=== PATIENT | male | born 1990 | race Two or more races ===

== ENCOUNTER 2018-03-13 01:00 | Emergency (ER) | payer OTHER ==
[~2018-03-13] VITALS: Ht 180.3 cm; Wt 104.3 kg
[~2018-03-13 01:00] MED LIST: DEPAKOTE ER250 MG ORAL; HALOPERIDOL0.5 MG ORAL
[2018-03-13 01:15] VITALS: BP 119/72
[2018-03-13] MEDS ORDERED: IBUPROFEN600 MG ORAL (02:25)
--- NOTE | 2018-03-13 02:40 | Emergency Room Report ---
History of Present Illness General Chief Complaint: Pain Source: Patient Present Illness HPI 27-year-old male presents ED for evaluation. Brought in by EMS complaining of right foot and ankle pain. States that he's been walking excessively and has been having pain in his right foot for weeks. Pain is dull, 8 out of 10, nonradiating. Cannot recall injuring the foot. Denies any other injuries. No other aggravating relieving factors. Denies any other associated symptoms Allergies: Coded Allergies: No Known Allergies (Unverified , 03/13/18) Patient History Past Medical History: psych hx Past Surgical History: none Pertinent Family History: none Social History: Denies: smoking, alcohol use, drug use Immunizations: UTD Reviewed Nursing Documentation: PMH: Agreed; PSxH: Agreed Nursing Documentation-PMH Past Medical History: No History, Except For History Of Psychiatric Problem: Yes Review of Systems All Other Systems: negative except mentioned in HPI Physical Exam Vital Signs Date Time Temp Pulse Resp B/P (MAP) Pulse Ox O2 Delivery O2 Flow Rate FiO2 03/13/18 00:53 18 03/13/18 00:53 98.0 75 95/58 99 Room Air 98.1 Sp02 EP Interpretation: reviewed, normal General Appearance: no apparent distress, alert, GCS 15, non-toxic Head: normocephalic Eyes: bilateral eye normal inspection, bilateral eye PERRL ENT: normal ENT inspection Neck: normal inspection Respiratory: normal inspection Cardiovascular #1: normal inspection Gastrointestinal: normal inspection Rectal: deferred Genitourinary: no CVA tenderness Musculoskeletal: swelling - R ankle Neurologic: alert, oriented x3, responsive, motor strength/tone normal, sensory intact, speech normal Psychiatric: normal inspection Skin: normal inspection Lymphatic: normal inspection Procedures Splinting Splinting : Consent: Verbal Pre-Made Type: ELIOT wrap Pre-Proc Neuro Vasc Exam: normal Post-Proc Neuro Vasc Exam: normal Patient Tolerated: Well Complications: None Medical Decision Making Diagnostic Impression: Primary Impression: Ankle pain Qualified Codes: M25.571 - Pain in right ankle and joints of right foot ER Course Hospital Course 27-year-old M presents to ED complaining of R ankle pain/swelling Differential diagnoses include: Fracture, dislocation, sprain, contusion Clinical course Patient placed on stretcher. After initial history and physical, I ordered pain medications and Xrays of R ankle Xrays prelim read shows no acute fracture/dislocation. noted soft tissue swelling. no signs of infection placed in eliot wrap. safe for discharge with close outpatient followup Diagnosis - ankle pain Stable and discharged to home with prescription for Motrin. apply ice, keep elevated. weight bear as tolerated. Followup with PMD. Return to ED if symptoms recur or worsen Other X-Ray Diagnostic Results Other X-Ray Diagnostic Results : X-Ray ordered: R ankle # of Views/Limited Vs Complete: 3 View Indication: Pain EP Interpretation: Yes Interpretation: no dislocation, no fractures, other - + soft tissue swelling Impression: No acute disease Electronically Signed by: Electronically signed by Fran Borja MD Last Vital Signs Date Time Temp Pulse Resp B/P (MAP) Pulse Ox O2 Delivery O2 Flow Rate FiO2 03/13/18 02:09 98.0 03/13/18 00:56 75 16 85/68 99 Room Air Status: improved Disposition: HOME, SELF-CARE Condition: Stable Scripts Ibuprofen* (MOTRIN*) 600 Mg Tablet 600 MG ORAL Q8H PRN for For Pain, #30 TAB 0 Refills Prov: Fran Borja MD 03/13/18 Patient Instructions: Ankle Pain Fran Borja MD Mar 13, 2018 02:40
[2018-03-13 02:50] VITALS: BP 119/63
--- NOTE | 2018-03-13 10:11 | Diagnostic Imaging Report ---
Indication: Pain right ankle ankle pain/trauma Comparison: None Findings: 3 views of the right ankle obtained. No acute fracture, malalignment, periostitis, or osteochondral defects are identified. Soft tissues are unremarkable. Talar beaking of the dorsal aspect of the talus noted. Impression: Negative examination. Talar beaking
== END 2018-03-13 02:50 | disposition home or self-care (01) ==
LOC: EDBD 01:00 → EMR 02:41
DX: M25.571 Pain in right ankle and joints of right foot (principal)
CPT/HCPCS: 99283